=== PATIENT | male | born 1960 | race Caucasian/White ===

== ENCOUNTER → 2016-11-10 | Day surgery (SDC) | payer OTHER ==
[~2016-11-10] MED LIST: ALPR-138 PO; BUPIVACAINE HCL PF 0.5% 30 ML VIAL ONE; BUPR-197 PO; CLINDAMYCIN PHOS 600 MG/4 ML VIAL ONE; ENAL2.5 PO; KETOROLAC TROMETHAMINE 30 MG/ML (IVP) VIAL IV PUSH ONE; LACTATED RINGER'S 1000 ML INJ 1,000 ML ONE; LIPI40TA PO; LORTA5 PO; MIDAZOLAM HCL 2 MG/2 ML VIAL ONE; ONDANSETRON HCL 4 MG/2 ML VIAL IV PUSH ONE; PROPOFOL 200 MG/20 ML AMP IV ONE; SODIUM CHLORIDE 0.9% SOLN 100 ML BAG IV ONE; ZETI10TA5 PO
--- NOTE | 2016-11-11 07:32 | MP ---
cc: [facility] DATE OF SURGERY 11/10/2016 PREOPERATIVE DIAGNOSIS Right hallux first MPJ nonunion fractured and painful hardware Hallux limitus. POSTOPERATIVE DIAGNOSIS Right hallux first MPJ nonunion fractured and painful hardware. PROCEDURES PERFORMED Removal of hardware, takedown of nonunion and first MPJ implant arthroplasty Hallux limitus. SPECIMEN Bone and soft tissue for pathological analysis as well as microbial analysis. ESTIMATED BLOOD LOSS Less than 30 mL COMPLICATIONS None ANESTHESIA General local 30 cc of 0.25% Marcaine plain TOURNIQUET TIME 81 minutes at a setting of 215 mmHg. PLAN OF ACTIVITY DC home once stable with same-day surgery criteria. JUSTIFICATION FOR THE PROCEDURE This is a 56-year-old male who underwent a first MPJ arthrodesis for hallux limitus. The patient subsequently developed fracturing of the plate and a clinical nonunion. The patient was offered conservative measures including casting, bone stimulator, removal of hardware with reimplantation of hardware with bone graft or implant arthroplasty. We devised a plan to move forward implant arthroplasty. The risks and benefits explained. No guarantees given or implied. PROCEDURE IN DETAIL Under mild sedation, the patient was brought into the operating room, placed on the operating table in the supine position. Following the induction of general anesthesia, local anesthesia was obtained about the patient's right forefoot utilizing standard block fashion. The patient's right foot was then scrubbed, prepped and draped in the usual aseptic fashion. The foot was elevated, exsanguinated and the previously placed mid ankle tourniquet was inflated at 215 mmHg. X-rays were taken to visualize implantation of hardware to help with the medial distal incision of the hallux. An incision was made at this level in the distal proximal phalanx. Sharp and blunt dissection was carried down to the periosteum utilizing a rongeur. Cortical bone had overgrown at the level of the interfragmentary arthrodesis screw was removed. Sharp and blunt dissection was carried down to the level of a headless screw which was then removed without any issues. Next, an incision was made over the dorsal aspect of the first MPJ medial to the extensor hallucis longus tendon. Sharp and blunt dissection was carried down to scar tissue and the joint capsule. A full-thickness incision and made exposing plate and hardware. The hardware was removed from the plate. There is noted be a fracture of the hardware at the level of the compression ramp at the midportion of the screw. Clinically, there was a was a nonunion without any signs of clinical fusion of the first MPJ. After the hardware was removed utilizing power instrumentation, the nonunion early pseudoarthrosis was then removed allowing for the implant. A double stemmed Primus flexible great toe implant silicone elastomer was then placed. The size was size 40 after utilizing the reamers and appropriate burring technique. Once the implant was deployed, it was then visualized under fluoroscopy. There was no subluxation of the joint. There was good extension and flexion of the first MPJ. The wound was then flushed copious amounts of normal saline. Capsular layer was closed utilizing Vicryl. The deep dermis was closed utilizing Vicryl. Skin was closed utilizing nylon. Upon relieving the tourniquet, there is a prompt hyperemic response to all digits without any delayed capillary fill time. A bulky bandage was placed. The patient is transferred from OR to PACU with all vital signs stable. He is [id number] weight-bear only. He will ice and elevate. I will see the patient within 3-5 days. JOSE L Orellana/RADHA /3:04 PM /7:19 AM CINDY
== END | disposition home or self-care (01) ==
LOC: ESDC 12:02
PROVIDERS: ATTEND Podiatrist Foot & Ankle Surgery
DX: T84.84XA Pain due to internal orthopedic prosthetic devices, implants and grafts, initial encounter (principal); M20.5X1 Other deformities of toe(s) (acquired), right foot; S92.401K Displaced unspecified fracture of right great toe, subsequent encounter for fracture with nonunion
CPT/HCPCS: 01480; 20680; 28291; 73620; 76000; 87070; 87102; 87205; 87206; 88305; C1713; J1885; J2250; J2405; J3010; J7120; 88304; 88311